=== PATIENT | female | born 1940 | race Caucasian/White ===

== ENCOUNTER 2018-09-16 14:02 | Emergency (ER) ==
[2018-09-16 14:07] VITALS: BP 130/72; TEMP 99; BMI 29.2
--- NOTE | 2018-09-16 14:58 | CT ---
EXAM: CT of the abdomen pelvis without contrast History: Right lower quadrant abdominal pain. Technique: Multiplanar CT images through the abdomen pelvis were obtained without the administration of IV contrast Findings: Heart is mildly enlarged. The subsegmental atelectasis is seen within the lower lungs. C alcified granuloma within the left lower lobe. No acute osseous abnormalities. No gallstones identified by CT. Atherosclerotic vascular calcifications. Small hiatal hernia. No f ocal liver or splenic lesions identified within limitations of a noncontrast study. No peripancreati c inflammation. Adrenal glands are within normal limits. A few punctate 1-2 mm bilateral renal calc carole. No hydronephrosis and no perinephric inflammation. No ureteral calculi. No bowel obstruction. No free air and no ascites. The appendix is not seen. There are no secondary signs of appendiciti s. Bladder is not well distended. No bladder wall thickening. No perirectal inflammation. Status post hysterectomy. No abdominal aortic aneurysm. No pathologically enlarged lymph nodes. Impression: 1. No acute intra-abdominal or pelvic process. 2. Small punctate nonobstructing bilateral renal calculi. 3. Mild cardiomegaly
--- NOTE | 2018-09-16 16:28 | CT ---
EXAM: CT of the chest without contrast History: Cough. Comparison: CT abdomen pelvis 09/16/2018 Technique: Multiplanar CT images through the chest were obtained without the administration of IV co ntrast Findings: Heart is enlarged. No pericardial effusion. The 4 cm ascending thoracic aortic aneurysm. No axillary lymphadenopathy. No mediastinal lymphadenopathy. Evaluation for hilar lymph nodes is limited due to the lack of contrast administration but no bulky hilar adenopathy is seen. 5 mm right upper lobe lung nodule with a small maritza of calcification is most likely the calcifying granuloma. There are benign calcified hilar lymph nodes and there is a benign calcified granulomas seen within the left lower lobe. Scattered areas of subsegmental atelectasis. No consolidation. Elevated right hemidiaphragm. No pleural fluid and no pneumothorax. No suspicious lung masses or lung nodules. For details in the upper abdomen, please see dedicated CT abdomen pelvis done on the same day. Tiny hiatal hernia. No acute osseous abnormalities. Impression: 1. Cardiomegaly without evidence for heart failure. 2. No evidence for pneumonia. 3. Old granulomatous disease. 4. 4 cm ascending thoracic aortic aneurysm. 5. Tiny hiatal hernia
[2018-09-16] MEDS ORDERED: ROCEPHIN 1 GM VIAL IM STA (17:02)
[2018-09-16] MEDS ORDERED: LIDOCAINE HCL 1% SDV SUBCUT STA (17:05)
--- NOTE | 2018-09-16 17:05 | ED.PDOC ---
General ED Provider: Dr. AZUL LOPEZ Chief Complaint: Abdominal Pain Stated Complaint: abdominal pain RLQ Time Seen by Physician: 14:00 Mode of Arrival: Walk-In Information Source: Patient Exam Limitations: No limitations Primary Care Provider: STANISLAV LLOYD Nursing and Triage Documentation Reviewed and Agree: Yes Does patient meet sepsis criteria?: No System Inflammatory Response Syndrome: Not Applicable Sepsis Protocol: For patient's 13 years and over: Temp is 96.8 and below OR 101 and greater Pulse >90 BPM Resp >20/minute Acutely Altered Mental Status Are patient's symptoms suggestive of a new infection, such as: -Pneumonia -Skin, Soft Tissue -Endocarditis -UTI -Bone, Joint Infection -Implantable Device -Acute Abdominal Infection -Wound Infection -Meningitis -Blood Stream Catheter Infection -Unknown GI Complaint Exam - Abdominal Pain Complaint/Exam Onset: Gradual Duration: 2 WEEK Symptoms Are: Still present Timing: Constant Initial Severity: Mild Current Severity: Mild Location of Pain: RLQ Radiates To: Denies: Chest, Back, Flank, LLQ, RLQ Character: Reports: Aching Aggravating: Reports: None Alleviating: Reports: None Associated Signs and Symptoms: Reports: Cough, Dysuria. Denies: Diaphoresis, Fever, Chest pain, Dizziness, Back pain, Constipation, Blood in stool, Urinary frequency, Decreased urine output, Decreased appetite, Vaginal bleeding, Vaginal discharge, Nausea, Vomiting, Diarrhea, Sore throat, Decreased activity Related History: Reports: Similar episode AAA Risk Factors: Reports: Hypertension Cardiac Risk Factors: Reports: Hypertension Ectopic Risk Factors: Reports: None Ovarian Torsion Risk Factors: Reports: None Surgical Obstruction Risk Factors: Reports: None Related Surgical History: Reports: None Patient Rh Status: Unknown Abdominal Findings: Present: None Differential Diagnoses: Appendicitis, Bowel Obstruction, Constipation, Gastroenteritis, Hepatitis, Pancreatitis, Irritable Bowel Syndrome, Pneumonia, Renal Colic Review of Systems - Review Of Systems Constitutional: Reports: No symptoms Eyes: Reports: No symptoms Ears, Nose, Mouth, Throat: Reports: No symptoms Respiratory: Reports: No symptoms Cardiac: Reports: No symptoms GI: Reports: Abdominal pain : Reports: No symptoms Musculoskeletal: Reports: No symptoms Skin: Reports: No symptoms Neurological: Reports: No symptoms Endocrine: Reports: No symptoms Hematologic/Lymphatic: Reports: No symptoms All Other Systems: Reviewed and Negative Past Medical History - Past Medical History Previously Healthy: Yes Endocrine: Reports: Hypothyroid Cardiovascular: Reports: Hypertension, CHF Respiratory: Reports: None Hematological: Reports: None Gastrointestinal: Reports: None Genitourinary: Reports: None Neuro/Psych: Reports: None Musculoskeletal: Reports: None Cancer: Reports: None Last Menstrual Period: n/a - Surgical History General Surgical History: Reports: None - Family History Family History: Reports: None - Social History Smoking Status: Never smoker Hx Substance Use: No Alcohol Screening: None Physical Exam - Physical Exam Appearance: Well-appearing, No pain distress, Well-nourished Eyes: MAGGIE, EOMI, Conjunctiva clear ENT: Ears normal, Nose normal, Oropharynx normal Respiratory: Airway patent, Breath sounds clear, Breath sounds equal, Respirations nonlabored Cardiovascular: RRR, Pulses normal, No rub, No murmur GI/: Soft, Nontender, No masses, Bowel sounds normal, No Organomegaly Musculoskeletal: Normal strength, ROM intact, No edema, No calf tenderness Skin: Warm, Dry, Normal color Neurological: Sensation intact, Motor intact, Reflexes intact, Cranial nerves intact, Alert, Oriented Psychiatric: Affect appropriate, Mood appropriate Interpretation - Radiology Interpretation Radiology Interpretation By: Radiologist Radiology Results: No acute changes Re-Evaluation - Re-Evaluation Time of Re-Evaluation: 14:00 Vital Signs Stable: Yes Pain Level: 0 Appearance: NAD Lungs: Clear Skin: Warm and Dry Neuro: Alert and Oriented X3 CV: RRR - Re-Evaluation Time of Re-Evaluation: 17:05 Status: Improved Vital Signs Stable: Yes Pain Level: 0 Appearance: NAD Skin: Warm and Dry Neuro: Alert and Oriented X3 CV: RRR Critical Care Note - Critical Care Note Total Time (mins): 0 Course - Course Hematology/Chemistry: 09/16/18 14:27 09/16/18 14:26 Orders, Labs, Meds: Lab Review 09/16/18 09/16/18 09/16/18 14:26 14:27 14:35 WBC 29.01 H RBC 4.77 Hgb 14.4 Hct 41.8 MCV 87.6 MCH 30.2 MCHC 34.4 RDW Coeff of Naomy 12.6 Plt Count 346 Neutrophils % (Manual) 85.0 H Band Neutrophils % 4.0 Lymphocytes % (Manual) 4.0 L Monocytes % (Manual) 7.0 Anisocytosis Not present Sodium 135.8 Potassium 3.31 L Chloride 93.0 L Carbon Dioxide 30.4 H Anion Gap 15.71 BUN 21.0 H Creatinine 1.13 Estimated GFR (MDRD) 47.00 BUN/Creatinine Ratio 18.58 Glucose 123.0 H Lactic Acid Calcium 9.17 Total Bilirubin 1.79 H AST 37.9 H ALT 21.9 Alkaline Phosphatase 88.5 Total Protein 7.78 Albumin 4.25 Globulin 3.53 Albumin/Globulin Ratio 1.20 Urine Color Yellow Urine Clarity Slightly Urine pH 5.5 Ur Specific [place] 1.010 Urine Protein Negative Urine Glucose (UA) Negative Urine Ketones Negative Urine Blood 1+ Urine Nitrite Negative Urine Bilirubin Negative Urine Urobilinogen 0.2 Ur Leukocyte Esterase 1+ Urine Microscopic WBC 10-20 Ur Squamous Epith Cells 5-10 Urine Bacteria 3+ 09/16/18 15:48 WBC RBC Hgb Hct MCV MCH MCHC RDW Coeff of Naomy Plt Count Neutrophils % (Manual) Band Neutrophils % Lymphocytes % (Manual) Monocytes % (Manual) Anisocytosis Sodium Potassium Chloride Carbon Dioxide Anion Gap BUN Creatinine Estimated GFR (MDRD) BUN/Creatinine Ratio Glucose Lactic Acid 0.81 Calcium Total Bilirubin AST ALT Alkaline Phosphatase Total Protein Albumin Globulin Albumin/Globulin Ratio Urine Color Urine Clarity Urine pH Ur Specific [place] Urine Protein Urine Glucose (UA) Urine Ketones Urine Blood Urine Nitrite Urine Bilirubin Urine Urobilinogen Ur Leukocyte Esterase Urine Microscopic WBC Ur Squamous Epith Cells Urine Bacteria Orders Category Date Time Status BLOOD CULTURE Stat LAB 09/16/18 16:16 Received CBC W/ AUTO DIFF Stat LAB 09/16/18 14:27 Completed COMPREHENSIVE METABOLIC PANEL Stat LAB 09/16/18 14:26 Completed LACTIC ACID Stat LAB 09/16/18 15:48 Completed MANUAL DIFFERENTIAL Stat LAB 09/16/18 14:27 Completed UA [URINALYSIS C & S IF INDICATED] Stat LAB 09/16/18 14:35 Completed URINE CULTURE Stat LAB 09/16/18 14:35 Received Ceftriaxone 1 gm Vial [Rocephin 1 gm Vial] MEDS 09/16/18 17:02 Stat 1 gm IM ONCE STA CT ABD/PEL WO RENAL STONE PROT Stat RADS 09/16/18 14:[address] CHEST W/O CONTRAST Stat RADS 09/16/18 15:38 Completed Medications Generic Name Dose Route Start Last Admin Trade Name Freq PRN Reason Stop Dose Admin Ceftriaxone Sodium 1 gm 09/16/18 17:02 Rocephin 1 Gm Vial IM 09/16/18 17:03 ONCE STA Vital Signs: Temp Pulse Resp BP Pulse Ox 09/16/18 14:02 99.0 F 66 20 130/72 91 L Departure - Departure Time of Disposition: 17:05 Disposition: HOME SELF-CARE Discharge Problem: Abdominal pain, UTI (urinary tract infection), bacterial Instructions: Abdominal Pain (ED), Urinary Tract Infection in Women (ED) Condition: Good Pt referred to PMD for follow-up: Yes IPMP verified?: No Additional Instructions: Please call your Family Physician as soon as possible to schedule a follow-up appointment.RETURN ON WEDNESDAY FOR RECHECK BY JESSICA Allergies/Adverse Reactions: Allergies No Known Allergies Allergy (Unverified 09/16/18 14:07) Home Medications: Ambulatory Orders Aspirin [Aspirin EC] 81 mg PO DAILY 09/16/18 Clopidogrel Bisulfate [Clopidogrel] 75 mg PO DAILY 09/16/18 Escitalopram Oxalate 20 mg PO DAILY 09/16/18 Furosemide 40 mg PO BID 09/16/18 Levothyroxine Sodium 100 mcg PO DAILY 09/16/18 Metoprolol Succinate 25 mg PO BEDTIME 09/16/18 Pantoprazole Sodium [Protonix] 20 mg PO DAILY 09/16/18 Spironolactone 50 mg PO BID 09/16/18 Disposition Discussed With: Patient
== END 2018-09-16 17:45 | disposition home or self-care (01) ==
LOC: ED 14:02
DX: N39.0 Urinary tract infection, site not specified (principal); R10.31 Right lower quadrant pain; I10 Essential (primary) hypertension; E03.9 Hypothyroidism, unspecified; Z79.899 Other long term (current) drug therapy
CPT/HCPCS: 36415; 80053; 81001; 83605; 85007; 85025; 87040; 87070; 87086; 87186; 96372; 99283